=== PATIENT | female | born 1995 | race Caucasian/White ===

== ENCOUNTER 2017-10-09 09:15 | Emergency (ER) | payer OTHER ==
[~2017-10-09] VITALS: Ht 149.9 cm; Wt 41.3 kg
[2017-10-09 09:21] VITALS: BP 114/64
--- NOTE | 2017-10-09 09:28 | NUR ---
Patient to rm 12 with steady gait. Gave report to rm 12.
--- NOTE | 2017-10-09 09:30 | NUR ---
WAS WITH PT
[2017-10-09 10:05] VITALS: BP 114/64
--- NOTE | 2017-10-09 10:07 | NUR ---
Patient discharged with v/s stable. Written and verbal after care instructions given and explained. Patient verbalized understanding. Ambulatory with steady gait. All questions addressed prior to discharge. Advised to follow up with PMD. Patient was instructed to come back if she feels any lumps or mass and has uncertanty.
== END 2017-10-09 10:05 | disposition home or self-care (01) ==
LOC: MED 09:15
DX: Z00.00 Encounter for general adult medical examination without abnormal findings (principal)
CPT/HCPCS: 99281